=== PATIENT | male | born 1965 | race Hispanic/Latino ===

== ENCOUNTER 2018-07-01 02:28 | Emergency (ER) | payer OTHER ==
[2018-07-01] MEDS ORDERED: diphenhydrAMINE 25 MG CAP ONE (02:41)
== END 2018-07-01 03:24 | disposition home or self-care (01) ==
LOC: BURERS 02:28
DX: S30.861A Insect bite (nonvenomous) of abdominal wall, initial encounter (principal); I10 Essential (primary) hypertension; Z79.899 Other long term (current) drug therapy; W57.XXXA Bitten or stung by nonvenomous insect and other nonvenomous arthropods, initial encounter
CPT/HCPCS: 99282